=== PATIENT | male | born 1965 | race Caucasian/White ===

== ENCOUNTER → 2021-03-22 | Day surgery (SDC) | payer MEDICARE, BC ==
[~2021-03-22] MED LIST: 24 HOUR ALLERG9.9 ML; ABILIFY10 MG PO; AMLODIPINE BESY10 MG PO; ATORVASTATIN CA40 MG PO; ESCITALOPRAM OX20 MG PO; GLUCOPHAGE XR500 M1 PO; GLUCOTROL5 MG PO; HYDROCODON-ACE1 EAC6 PO; LISINOPRIL10 MG PO; NEURONTIN300 MG PO; OMEPRAZOLE20 M1 PO; SINGULAIR10 MG PO; ST. JOSEPH ASPI81 M1 PO
== END | disposition home or self-care (01) ==
LOC: OR 06:45
DX: Z12.11 Encounter for screening for malignant neoplasm of colon (principal); K63.5 Polyp of colon; K64.1 Second degree hemorrhoids; I10 Essential (primary) hypertension; E11.9 Type 2 diabetes mellitus without complications; E78.5 Hyperlipidemia, unspecified; G47.30 Sleep apnea, unspecified; K21.9 Gastro-esophageal reflux disease without esophagitis; F41.9 Anxiety disorder, unspecified; F32.9 Major depressive disorder, single episode, unspecified; E66.01 Morbid (severe) obesity due to excess calories; Z68.41 Body mass index [BMI] 40.0-44.9, adult; Z99.89 Dependence on other enabling machines and devices; Z79.82 Long term (current) use of aspirin; Z79.84 Long term (current) use of oral hypoglycemic drugs; Z79.899 Other long term (current) drug therapy
CPT/HCPCS: 82962; J2704; J7040

== ENCOUNTER → 2021-05-06 | Outpatient (CLI) | payer MEDICARE, BC ==
[2021-05-06 16:29] LABS: HEMOGLOBIN 14.9 gm/dl (14.0-17.5); RED BLOOD COUNT 4.7 M/UL (4.20-5.50); WHITE BLOOD COUNT 5.7 K/UL (4.5-11.0)
[2021-05-06 17:06] LABS: BUN/CREATININE RATIO 12 (0-10)
[2021-05-07 09:14] LABS: CREATININE, URINE 80.8 mg/dL (Not Estab.); MICROALB/CREAT RATIO <4 (0-29)
[2021-05-07 20:10] LABS: CHOLESTEROL, TOTAL 180 mg/dL (100-199); HDL SIZE 8.6 nm (>=9.2); HDL-C 36 mg/dL (>39); HDL-P (TOTAL) 26.8 umol/L (>=30.5); LARGE HDL-P 2.3 umol/L (>=4.8); LARGE VLDL-P 12.2 nmol/L (<=2.7); LDL SIZE 20.2 nm (>20.5); LDL SIZE 20.2 nm (>=20.8); LDL-C 103 mg/dL (0-99); LDL-P 1377 nmol/L (<1000); LP-IR SCORE 82 (<=45); SMALL LDL-P 809 nmol/L (<=527); TRIGLYCERIDES 239 mg/dL (0-149); VLDL SIZE 53.2 nm (<=46.6)
== END ==
LOC: LAB 14:28
PROVIDERS: Emergency Medicine
DX: Z12.5 Encounter for screening for malignant neoplasm of prostate (principal); I10 Essential (primary) hypertension; E11.22 Type 2 diabetes mellitus with diabetic chronic kidney disease; E78.2 Mixed hyperlipidemia; N18.2 Chronic kidney disease, stage 2 (mild); R53.83 Other fatigue
CPT/HCPCS: 36415; 80053; 80061; 82043; 82570; 83036; 83704; 84443; 84550; 85025; G0103

== ENCOUNTER → 2021-05-24 | Outpatient (CLI) | payer MEDICARE, BC | LOC: KOH-I 14:09 | DX: M51.36 Other intervertebral disc degeneration, lumbar region (principal); M54.16 Radiculopathy, lumbar region; M54.2 Cervicalgia | CPT/HCPCS: 72148 ==

== ENCOUNTER → 2021-09-23 | Outpatient (CLI) | payer MEDICARE, BC ==
[2021-09-26 01:08] LABS: TESTOSTERONE, SERUM 263 ng/dL (264-916)
== END ==
LOC: LAB 14:45
PROVIDERS: Emergency Medicine
DX: I12.9 Hypertensive chronic kidney disease with stage 1 through stage 4 chronic kidney disease, or unspecified chronic kidney disease (principal); E78.2 Mixed hyperlipidemia; N18.2 Chronic kidney disease, stage 2 (mild); E29.1 Testicular hypofunction; E11.69 Type 2 diabetes mellitus with other specified complication; E11.22 Type 2 diabetes mellitus with diabetic chronic kidney disease
CPT/HCPCS: 36415; 80053; 83036; 84402; 84403

== ENCOUNTER → 2022-03-02 | Outpatient (CLI) | payer MEDICARE, BC ==
[2022-03-02 15:19] LABS: BUN/CREATININE RATIO 15 (0-10)
[2022-03-04 15:13] LABS: CHOLESTEROL, TOTAL 147 mg/dL (100-199); HDL SIZE 8.5 nm (>=9.2); HDL-C 37 mg/dL (>39); HDL-P (TOTAL) 26.2 umol/L (>=30.5); LARGE HDL-P <1.3 umol/L (>=4.8); LARGE VLDL-P 4.2 nmol/L (<=2.7); LDL SIZE 20.3 nm (>20.5); LDL SIZE 20.3 nm (>=20.8); LDL-C 83 mg/dL (0-99); LDL-P 1145 nmol/L (<1000); LP-IR SCORE 74 (<=45); SMALL LDL-P 615 nmol/L (<=527); TRIGLYCERIDES 155 mg/dL (0-149); VLDL SIZE 47.4 nm (<=46.6)
== END ==
LOC: LAB 14:01
PROVIDERS: Emergency Medicine
DX: I10 Essential (primary) hypertension (principal); F41.1 Generalized anxiety disorder; F33.42 Major depressive disorder, recurrent, in full remission; E78.2 Mixed hyperlipidemia; E11.9 Type 2 diabetes mellitus without complications
CPT/HCPCS: 36415; 80053; 80061; 83036; 83704; 84550